=== PATIENT | female | born 1970 ===

== ENCOUNTER 2016-09-21 13:15 | Emergency (ER) | payer MEDICAID ==
[2016-09-21 13:29] VITALS: BP 118/72; RESP 18; TEMP 98.1; O2SAT 98
[2016-09-21 14:16] VITALS: PULSE 84
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
== END 2016-09-21 14:15 | disposition home or self-care (01) ==
LOC: H.ER 13:15
DX: G89.29 Other chronic pain (principal); M54.5 Low back pain; M79.1 Myalgia

== ENCOUNTER 2016-11-02 21:49 | Emergency (ER) | payer MEDICAID ==
[2016-11-02 21:54] VITALS: BP 137/77; PULSE 99; RESP 20; TEMP 99.8; O2SAT 100
--- NOTE | 2016-11-02 23:26 | ED PDOC ---
HPI: General Adult Time Seen by Provider: 11/02/16 22:39 Chief Complaint (Nursing): Back Pain Additional Complaint(s): Pt. states today she developed lower back pain. Reports pain in back is consistent with previous episodes of back pain. Pt. states she has a hx of chronic lower back pain for which she sees Dr. Miller, pain management. She takes Vicodin and Temazepam. Of note, pt. is currently menstruating. Denies trauma, incontinence, hematuria, dysuria, abdominal pain, fever. Past Medical History Reviewed: Historical Data, Nursing Documentation, Vital Signs Vital Signs: Last Vital Signs Temp 99.8 F H 11/02/16 21:53 Pulse 99 H 11/02/16 21:53 Resp 20 11/02/16 21:53 BP 137/77 11/02/16 21:53 Pulse Ox 100 11/02/16 21:53 - Medical History PMH: Back Problems (chronic), Bipolar Disorder, Depression, HTN, Migraine - Surgical History Surgical History: (3) - Family History Family History: States: Unknown Family Hx - Immunization History Hx Tetanus Toxoid Vaccination: No Hx Influenza Vaccination: No Hx Pneumococcal Vaccination: No - Home Medications Home Medications: Ambulatory Orders Medication Instructions Recorded Aspirin [Aspirin EC] 81 mg PO DAILY 01/23/16 Bupropion HCl 75 mg PO BID 01/23/16 Calcium Carbonate [Calcium] 600 mg PO DAILY 01/23/16 Escitalopram Oxalate [Escitalopram] 10 mg PO BID 01/23/16 Gabapentin [Neurontin] 400 mg PO TID 01/23/16 Omeprazole 40 mg PO DAILY 01/23/16 Oxycodone HCl/Acetaminophen 1 tab PO PRN PRN 01/23/16 [Oxycodone-Acetaminophen 10-325] Quetiapine Fumarate [Seroquel Xr] 400 mg PO DAILY 01/23/16 Simvastatin 10 mg PO DAILY 01/23/16 Sulfamethoxazole/Trimethoprim 1 tab PO BID #6 tab 01/23/16 [Bactrim DS 800 mg-160 mg] Temazepam [Restoril] 30 mg PO DAILY 01/23/16 Topiramate [Topamax] 50 mg PO DAILY 01/23/16 Trazodone HCl 150 mg PO HS 01/23/16 tiZANidine [Zanaflex] 4 mg PO BID PRN 01/23/16 Naproxen [Naprosyn] 500 mg PO Q12H #20 tab 02/23/16 Oxycodone HCl/Acetaminophen 1 tab PO Q8H #6 tab 02/23/16 [Percocet 325 mg-5 mg] Naproxen 1 tab PO BID PRN #14 tab 03/20/16 Metaxalone [Skelaxin] 800 mg PO TID PRN #20 tablet 07/10/16 Prednisone 50 mg PO DAILY #6 tablet 07/10/16 diaZEpam [Valium] 5 mg PO Q8 PRN #12 tab 09/21/16 traMADol [Ultram] 50 mg PO Q8 PRN #20 tab 09/21/16 Ciprofloxacin HCl [Cipro] 500 mg PO BID #14 tab 11/02/16 - Allergies Allergies/Adverse Reactions: Allergies Allergy/AdvReac Type Severity Reaction Status Date / Time No Known Allergies Allergy Verified 09/21/16 13:21 Review of Systems ROS Statement: Except As Marked, All Systems Reviewed And Found Negative Musculoskeletal: Positive for: Back Pain Physical Exam - Physical Exam Appears: Positive for: Well, Non-toxic, No Acute Distress Skin: Positive for: Normal Color, Warm. Negative for: Rash Respiratory: Positive for: CNT, Normal Breath Sounds Gastrointestinal/Abdominal: Positive for: Normal Exam, Soft. Negative for: Tenderness, Guarding Back: Positive for: Normal Inspection. Negative for: L CVA Tenderness, R CVA Tenderness, Vertebral Tenderness Neurologic/Psych: Positive for: Alert, Oriented - Laboratory Results Urine POC: Negative Urine dip results: Positive for: Leukocyte Esterase (small), Blood (large). Negative for: Nitrate, Ketones, Glucose, Bilirubin, Protein - ECG O2 Sat by Pulse Oximetry: 100 - Progress ED Course And Treament: Toradol IM, valium PO given. Disposition - Clinical Impression Clinical Impression: UTI (urinary tract infection) - Patient ED Disposition Is Patient to be Admitted: No - Disposition Disposition: Routine/Home Disposition Time: 23:31 Condition: IMPROVED Prescriptions: Ciprofloxacin HCl [Cipro] 500 mg PO BID #14 tab Instructions: Urinary Tract Infection in Women (ED)
== END 2016-11-02 23:37 | disposition home or self-care (01) ==
LOC: H.ER 21:49
DX: N39.0 Urinary tract infection, site not specified (principal)

== ENCOUNTER 2018-10-06 01:06 | Emergency (ER) | payer MEDICAID, OTHER ==
[2018-10-06 01:57] VITALS: O2SAT 97
--- NOTE | 2018-10-06 02:25 | ED PDOC ---
HPI: Back Time Seen by Provider: 10/06/18 01:51 Chief Complaint (Nursing): Back Pain Chief Complaint (Provider): low back pain History Per: Patient History/Exam Limitations: no limitations Onset/Duration Of Symptoms: Days (3) Exacerbating Factor(s): Turning, Movement, Sitting, Standing Additional Complaint(s): 47 y/o female history of lspine disc herniations presents for evaluation of low back pain x 3 days. Patient states pain started after doing some mopping in the house. Patient states radiates to left side, down left buttock; consistent with previous flare ups. Patient states she has been taking her Percocet 3 times daily as prescribed but it is not helping with the pain. Denies numbness/weakness lower extremities, bowel/bladder incontinence. Past Medical History Reviewed: Historical Data, Nursing Documentation, Vital Signs Vital Signs: Last Vital Signs Temp 97.8 F 10/06/18 01:20 Pulse 80 10/06/18 01:20 Resp 18 10/06/18 01:20 BP 124/83 10/06/18 01:20 Pulse Ox 97 10/06/18 01:20 - Medical History PMH: Back Problems (chronic), Bipolar Disorder, Depression, HTN, Migraine - Surgical History Surgical History: Tonsillectomy, (3) - Family History Family History: States: Unknown Family Hx - Immunization History Hx Tetanus Toxoid Vaccination: No Hx Influenza Vaccination: No Hx Pneumococcal Vaccination: No - Home Medications Home Medications: Ambulatory Orders Medication Instructions Recorded Aspirin [Aspirin EC] 81 mg PO DAILY 01/23/16 Bupropion HCl 75 mg PO BID 01/23/16 Calcium Carbonate [Calcium] 600 mg PO DAILY 01/23/16 Escitalopram Oxalate [Escitalopram] 10 mg PO BID 01/23/16 Gabapentin [Neurontin] 400 mg PO TID 01/23/16 Omeprazole 40 mg PO DAILY 01/23/16 Oxycodone HCl/Acetaminophen 1 tab PO PRN PRN 01/23/16 [Oxycodone-Acetaminophen 10-325] Quetiapine Fumarate [Seroquel Xr] 400 mg PO DAILY 01/23/16 Simvastatin 10 mg PO DAILY 01/23/16 Sulfamethoxazole/Trimethoprim 1 tab PO BID #6 tab 01/23/16 [Bactrim DS 800 mg-160 mg] Temazepam [Restoril] 30 mg PO DAILY 01/23/16 Topiramate [Topamax] 50 mg PO DAILY 01/23/16 Trazodone HCl 150 mg PO HS 01/23/16 tiZANidine [Zanaflex] 4 mg PO BID PRN 01/23/16 Naproxen [Naprosyn] 500 mg PO Q12H #20 tab 02/23/16 Oxycodone HCl/Acetaminophen 1 tab PO Q8H #6 tab 02/23/16 [Percocet 325 mg-5 mg] Naproxen 1 tab PO BID PRN #14 tab 03/20/16 Metaxalone [Skelaxin] 800 mg PO TID PRN #20 tablet 07/10/16 Prednisone 50 mg PO DAILY #6 tablet 07/10/16 diaZEpam [Valium] 5 mg PO Q8 PRN #12 tab 09/21/16 traMADol [Ultram] 50 mg PO Q8 PRN #20 tab 09/21/16 Ciprofloxacin HCl [Cipro] 500 mg PO BID #14 tab 11/02/16 Acetaminophen with Codeine 1 each PO Q6 PRN #12 tablet 04/07/18 [Tylenol with Codeine #3 Tablet] Naproxen [Naprosyn] 1 tab PO BID PRN #25 tab 04/07/18 Cyclobenzaprine [Cyclobenzaprine 10 mg PO BID PRN #14 tab 10/06/18 HCl] Naproxen [Naprosyn] 500 mg PO Q12 PRN #14 tablet 10/06/18 - Allergies Allergies/Adverse Reactions: Allergies Allergy/AdvReac Type Severity Reaction Status Date / Time No Known Allergies Allergy Verified 04/07/18 11:30 Review of Systems ROS Statement: Except As Marked, All Systems Reviewed And Found Negative Musculoskeletal: Positive for: Back Pain Physical Exam - Reviewed Nursing Documentation Reviewed: Yes Vital Signs Reviewed: Yes - Physical Exam Appears: Positive for: Well, Non-toxic, No Acute Distress Head Exam: Positive for: ATRAUMATIC, NORMAL INSPECTION, NORMOCEPHALIC Back: Positive for: Decreased ROM (secondary to pain), Muscle Spasm (left lspine paravertebral tenderness). Negative for: L CVA Tenderness, R CVA Tenderness, Vertebral Tenderness Extremity: Positive for: Normal ROM Neurological/Psych: Positive for: Awake, Alert, Oriented (x3) - ECG O2 Sat by Pulse Oximetry: 97 - Progress ED Course And Treament: -Toradol IM -flexeril PO On re-eval, patient states pain improved. Ambulated to bathroom without difficulty Patient declines xray at this time; states she has appt Sat to see her PMD Patient educated on findings, discharged with rx Naproxen, Flexeril ADvised follow uP PMD as scheduled WArm compresses. Rest. Return precautions given Disposition - Clinical Impression Clinical Impression: Low back pain - Patient ED Disposition Is Patient to be Admitted: No Counseled Patient/Family Regarding: Diagnosis, Need For Followup, Rx Given - Disposition Referrals: El Miller MD [Primary Care Provider] - Disposition: Routine/Home Disposition Time: 04:30 Condition: IMPROVED Prescriptions: Cyclobenzaprine [Cyclobenzaprine HCl] 10 mg PO BID PRN #14 tab PRN Reason: Muscle Spasm Naproxen [Naprosyn] 500 mg PO Q12 PRN #14 tablet PRN Reason: Pain, Moderate (4-7) Instructions: Low Back Pain in Adults, Chronic Pain
[2018-10-06 05:38] VITALS: BP 112/82; PULSE 81; RESP 16; TEMP 98.7
== END 2018-10-06 05:36 | disposition home or self-care (01) ==
LOC: H.ER 01:06
DX: M54.5 Low back pain (principal); F31.9 Bipolar disorder, unspecified; I10 Essential (primary) hypertension
CPT/HCPCS: 96372; 99283; J1885

== ENCOUNTER 2018-10-16 08:39 | Emergency (ER) | payer MEDICAID ==
[2018-10-16 08:51] VITALS: RESP 16; TEMP 98.3
[2018-10-16 08:52] VITALS: BMI 32.2
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
[2018-10-16 10:53] VITALS: BP 137/63; PULSE 71; O2SAT 100
== END 2018-10-16 10:59 | disposition home or self-care (01) ==
LOC: H.ER 08:39
DX: M54.5 Low back pain (principal); G89.29 Other chronic pain; I10 Essential (primary) hypertension; Z86.59 Personal history of other mental and behavioral disorders; M79.18 Myalgia, other site
CPT/HCPCS: 81025; 96372; 99283; J1885

== ENCOUNTER 2018-11-20 11:05 | Emergency (ER) | payer MEDICAID ==
[2018-11-20 11:15] VITALS: BP 144/95; PULSE 78; RESP 16; TEMP 98.5; O2SAT 96
[2018-11-20 11:16] VITALS: BMI 32.5
--- NOTE | 2018-11-20 12:27 | ED PDOC ---
HPI: Eye Injury/Pain Time Seen by Provider: 11/20/18 12:09 Chief Complaint (Nursing): Eye Problem Chief Complaint (Provider): Eye Problem History Per: Patient History/Exam Limitations: no limitations Onset/Duration Of Symptoms: Days (x4) Current Symptoms Are (Timing): Still Present Additional Complaint(s): Patient is a 47 y/o female who presents to the ED for evaluation of left eye pain for the past four days. Patient states her hands were dirty and after touching her eye she developed a stye. Patient reports she popped the stye yesterday and cleaned the area with a q-tip, however, since has been experiencing increased pain and redness. Patient denies any vision change, foreign body sensation or contact use. Of note, patient does wear glasses. Patient noted she has not taken any medication for pain and has been using OTC eye drops with no relief. PCP: Dr. Kenyatta Miller Past Medical History Reviewed: Historical Data, Nursing Documentation, Vital Signs Vital Signs: Last Vital Signs Temp 98.5 F 11/20/18 11:14 Pulse 78 11/20/18 11:14 Resp 16 11/20/18 11:14 BP 144/95 H 11/20/18 11:14 Pulse Ox 96 11/20/18 11:14 Primary Care Provider: El Miller - Medical History PMH: Back Problems (chronic), Bipolar Disorder, Depression, HTN, Migraine - Surgical History Surgical History: Tonsillectomy, (3) - Family History Family History: States: Unknown Family Hx - Immunization History Hx Tetanus Toxoid Vaccination: No Hx Influenza Vaccination: No Hx Pneumococcal Vaccination: No - Home Medications Home Medications: Ambulatory Orders Medication Instructions Recorded Aspirin [Aspirin EC] 81 mg PO DAILY 01/23/16 Bupropion HCl 75 mg PO BID 01/23/16 Calcium Carbonate [Calcium] 600 mg PO DAILY 01/23/16 Escitalopram Oxalate [Escitalopram] 10 mg PO BID 01/23/16 Gabapentin [Neurontin] 400 mg PO TID 01/23/16 Omeprazole 40 mg PO DAILY 01/23/16 Oxycodone HCl/Acetaminophen 1 tab PO PRN PRN 01/23/16 [Oxycodone-Acetaminophen 10-325] Quetiapine Fumarate [Seroquel Xr] 400 mg PO DAILY 07/19/16 Simvastatin 10 mg PO DAILY 01/23/16 Sulfamethoxazole/Trimethoprim 1 tab PO BID #6 tab 01/23/16 [Bactrim DS 800 mg-160 mg] Temazepam [Restoril] 30 mg PO DAILY 01/23/16 Topiramate [Topamax] 50 mg PO DAILY 01/23/16 Trazodone HCl 150 mg PO HS 01/23/16 tiZANidine [Zanaflex] 4 mg PO BID PRN 01/23/16 Naproxen [Naprosyn] 500 mg PO Q12H #20 tab 02/23/16 Oxycodone HCl/Acetaminophen 1 tab PO Q8H #6 tab 02/23/16 [Percocet 325 mg-5 mg] Naproxen 1 tab PO BID PRN #14 tab 03/20/16 Metaxalone [Skelaxin] 800 mg PO TID PRN #20 tablet 07/10/16 Prednisone 50 mg PO DAILY #6 tablet 07/10/16 diaZEpam [Valium] 5 mg PO Q8 PRN #12 tab 09/21/16 traMADol [Ultram] 50 mg PO Q8 PRN #20 tab 09/21/16 Ciprofloxacin HCl [Cipro] 500 mg PO BID #14 tab 11/02/16 Acetaminophen with Codeine 1 each PO Q6 PRN #12 tablet 04/07/18 [Tylenol with Codeine #3 Tablet] Naproxen [Naprosyn] 1 tab PO BID PRN #25 tab 04/07/18 Cyclobenzaprine [Cyclobenzaprine 10 mg PO BID PRN #14 tab 10/06/18 HCl] Naproxen [Naprosyn] 500 mg PO Q12 PRN #14 tablet 10/06/18 Cyclobenzaprine [Cyclobenzaprine 10 mg PO Q12 PRN #20 tab 10/16/18 HCl] Erythromycin 0.5% [Erythromycin] 1 applic EACHEYE QID #1 tube 11/20/18 - Allergies Allergies/Adverse Reactions: Allergies Allergy/AdvReac Type Severity Reaction Status Date / Time No Known Allergies Allergy Verified 11/20/18 11:50 Review of Systems ROS Statement: Except As Marked, All Systems Reviewed And Found Negative Eyes: Positive for: Pain (left), Redness. Negative for: Vision Change Physical Exam - Reviewed Nursing Documentation Reviewed: Yes Vital Signs Reviewed: Yes - Physical Exam Comments: GENERAL APPEARANCE: Patient is awake, alert, oriented x 3, in no acute distress. HEENT: (+) erythema in left eye, (+) mild swelling to lower left eyelid, area visible where stye was, and now has improved (-) facial blisters. LIDS & LASHES: Normal. PUPILS: PERRL. EOMI's: Intact. LID EVERSION: (-) foreign body. CONJUNCTIVAE: (+) injection of left CORNEA: (-) infiltrate, (-) drainage. ANTERIOR CHAMBER: (-) foreign body, (-) tear in iris, (-) hyphema. FUNDUSCOPIC: (-) foreign body, (-) hemorrhage. - ECG O2 Sat by Pulse Oximetry: 96 (RA) Pulse Ox Interpretation: Normal Medical Decision Making Medical Decision Making: Time: 1226 Impression: Left Eye Pain Plan: Patient advised to apply warm compresses. Patient will be given antibiotics for infection Discussed diagnosis, treatment, return precautions and f/u with pt who is understanding, in agreement and stable for dc Scribe Attestation: Documented by Eric Gooden, acting as a scribe for Dov Hoagn PA-C. Provider Scribe Attestation: All medical record entries made by the Scribe were at my direction and personally dictated by me. I have reviewed the chart and agree that the record accurately reflects my personal performance of the history, physical exam, medi ashlee decision making, and the department course for this patient. I have also personally directed, reviewed, and agree with the discharge instructions and disposition. Disposition - Clinical Impression Clinical Impression: Hordeolum externum (stye), Conjunctivitis - Patient ED Disposition Is Patient to be Admitted: No Counseled Patient/Family Regarding: Studies Performed, Diagnosis, Need For Followup, Rx Given - Disposition Referrals: El Miller MD [Medical Doctor] - Disposition: Routine/Home Disposition Time: 12:26 Condition: STABLE Additional Instructions: Thank you for letting us take care of you today. The emergency medical care you received today was directed at your acute symptoms. If you were prescribed any medication, please fill it and take as directed. Apply warm compresses to eye 2- 3 times a day. It may take several days for your symptoms to resolve. Return to the Emergency Department if your symptoms worsen, do not improve, or if you have any other problems. Please contact your doctor in 2 days for re-evaluation and follow up / or call one of the physicians/clinics you have been referred to that are listed on the Patient Visit Information form that is included in your discharge packet. Bring any paperwork you were given at discharge with you along with any medications you are taking to your follow up visit. Our treatment cannot replace ongoing medical care by a primary care provider (PCP) outside of the emergency department. Prescriptions: Erythromycin 0.5% [Erythromycin] 1 applic EACHEYE QID #1 tube Instructions: Stye (Hordeolum), Conjunctivitis ([place]) (DC) Print Language: DANISH - POA Present On Arrival: None
== END 2018-11-20 12:53 | disposition home or self-care (01) ==
LOC: H.ER 11:05
DX: H00.015 Hordeolum externum left lower eyelid (principal); Z86.59 Personal history of other mental and behavioral disorders; H10.9 Unspecified conjunctivitis; I10 Essential (primary) hypertension; Z79.82 Long term (current) use of aspirin